=== PATIENT | female | born 1950 | race Caucasian/White ===

== ENCOUNTER → 2017-05-09 | Outpatient (CLI) | payer BC ==
[~2017-05-09] VITALS: Ht 170.2 cm; Wt 79.4 kg
[~2017-05-09] MED LIST: ACIPHEX20 MG PO; ADVAIR 250/501 DISK IH; ATACAND HCT1 TABLET PO; DEXILANT60 MG PO; EFFEXOR75 MG PO; LEVAQUIN500 MG PO; LIPITOR40 MG PO; MUCINEX DM ER1 EAC1 PO; NEXIUM40 MG PO; ROBITUSSIN AC,T10 ML PO; SEROQUEL100 MG PO; SEROQUEL50 MG PO; SUCRALFATE1 GM PO; VOLTAREN75 MG PO; ZANTAC300 MG PO
== END | disposition home or self-care (01) ==
LOC: AMB 07:56
DX: K31.7 Polyp of stomach and duodenum (principal); K29.70 Gastritis, unspecified, without bleeding; K44.9 Diaphragmatic hernia without obstruction or gangrene; K21.9 Gastro-esophageal reflux disease without esophagitis; I10 Essential (primary) hypertension; Z87.891 Personal history of nicotine dependence; Z79.82 Long term (current) use of aspirin
CPT/HCPCS: 88305; 88342 TC

== ENCOUNTER 2017-05-14 10:27 | Emergency (ER) | payer BC ==
[~2017-05-14] VITALS: Ht 170.2 cm; Wt 82.0 kg
[2017-05-14 11:20] LABS: HEMATOCRIT 32.1 % (36.0-46.0); MCH 26.2 PG (29.0-34.0); MCHC 31.5 G/DL (30.0-36.0); MCV 83.2 FL (83-99); MEAN PLAT.VOLUME 7.8 uM^3 (9.5-12.4); PLATELET COUNT 618 K/uL (156-360); RBC DIS.WIDTH-CV 12.7 % (11.8-14.6); RBC DIS.WIDTH-SD 38.7 % (39-53); RED BLOOD COUNT 3.86 M/uL (3.80-5.20); WHITE BLOOD COUNT 7.9 K/uL (4.1-10.2)
[2017-05-14 11:33] LABS: CHLORIDE 95 mEq/L (99-109); POTASSIUM 4.1 mEq/L (3.7-5.4); SODIUM 131 mEq/L (136-147)
[2017-05-14 11:36] LABS: GLUCOSE 99 mg/dL (70-99)
[2017-05-14 11:37] LABS: ANION GAP 9 MEQ/L (2-14)
[2017-05-14 11:38] LABS: TOTAL BILIRUBIN 0.3 mg/dL (0.0-1.0)
[2017-05-14 11:39] LABS: ALKALINE PHOSPHATASE 95 IU/L (3-129); GFR ESTIMATE (CALCULATED) > 59 mL/min/
[2017-05-14 11:40] LABS: UREA NITROGEN (BUN) 7 mg/dL (9-23)
[2017-05-14 11:43] LABS: LIPASE 22 U/L (1.0-51.0)
[2017-05-14 11:48] LABS: ADD MIUA? YES; BILIRUBIN NEGATIVE; BLOOD MODERATE; COLOR YELLOW ((YELLOW)); GLUCOSE (STRIP) NEGATIVE; KETONES 5; LEUKOCYTES TRACE; NITRITE NEGATIVE; PROTEIN (STRIP) NEGATIVE; UROBILINOGEN 0.2 MG/DL (0.2-1.0)
[2017-05-14 11:53] LABS: BACTERIA 3+ /HPF; EPITHELIAL CELLS 2+ /HPF; MUCUS TRACE /LPF
[2017-05-14 15:08] VITALS: BP 150/86
== END 2017-05-14 15:16 | disposition short-term general hospital (02) ==
LOC: EME 10:27
PROVIDERS: Nurse Practitioner Family
DX: C56.9 Malignant neoplasm of unspecified ovary (principal); C78.6 Secondary malignant neoplasm of retroperitoneum and peritoneum; J90 Pleural effusion, not elsewhere classified; R18.8 Other ascites; R19.7 Diarrhea, unspecified; I10 Essential (primary) hypertension; Z87.891 Personal history of nicotine dependence
CPT/HCPCS: 74177; 80053; 81003; 83690; 85027; 99281; 99284; J2405; J3010; J7030

== ENCOUNTER 2017-08-12 18:14 | Emergency (ER) | payer BC ==
[~2017-08-12] VITALS: Ht 170.2 cm; Wt 68.4 kg
[2017-08-12 18:58] LABS: NRBC (%) 0.3 /100 WBC (0-0)
[2017-08-12 19:04] LABS: CHLORIDE 92 mEq/L (99-109); POTASSIUM 2.9 mEq/L (3.7-5.4); SODIUM 132 mEq/L (136-147)
[2017-08-12 19:05] LABS: GLUCOSE 143 mg/dL (70-99)
[2017-08-12 19:07] LABS: ANION GAP 15 MEQ/L (2-14)
[2017-08-12 19:09] LABS: GFR ESTIMATE (CALCULATED) > 59 mL/min/
[2017-08-12 19:10] LABS: UREA NITROGEN (BUN) 25 mg/dL (9-23)
[2017-08-12 19:38] LABS: ABS NEUTROPHIL COUNT 2.9; ANISOCYTOSIS 2+; EOSINOPHIL ABS CT 0; HEMATOCRIT 30.6 % (36.0-46.0); HYPOCHROMASIA 1+; INSTRUMENT ABS NEUTROPHIL CT 3.1 K/uL; MACROCYTES 1+; MCH 28.1 PG (29.0-34.0); MCHC 33.7 G/DL (30.0-36.0); MCV 83.6 FL (83-99); MEAN PLAT.VOLUME 10.5 uM^3 (9.5-12.4); MICROCYTOSIS 1+; PLATELET COUNT 365 K/uL (156-360); RBC DIS.WIDTH-CV 21.7 % (11.8-14.6); RBC DIS.WIDTH-SD 65.5 % (39-53); RED BLOOD COUNT 3.66 M/uL (3.80-5.20); TARGET CELLS 2+; WHITE BLOOD COUNT 6.4 K/uL (4.1-10.2)
[2017-08-12 21:32] LABS: CHLORIDE 94 mEq/L (99-109); POTASSIUM 3.3 mEq/L (3.7-5.4); SODIUM 132 mEq/L (136-147)
[2017-08-12 21:34] LABS: GLUCOSE 98 mg/dL (70-99)
[2017-08-12 21:35] LABS: ANION GAP 11 MEQ/L (2-14)
[2017-08-12 21:37] LABS: GFR ESTIMATE (CALCULATED) > 59 mL/min/
[2017-08-12 21:38] LABS: UREA NITROGEN (BUN) 22 mg/dL (9-23)
[2017-08-12] MEDS ORDERED: K-DUR20 MEQ PO (21:54)
[2017-08-12] MEDS ORDERED: LOMOTIL TABLET1 EACH PO (21:54)
[2017-08-12 22:01] VITALS: BP 156/86
== END 2017-08-12 22:18 | disposition home or self-care (01) ==
LOC: EME 18:14
PROVIDERS: Emergency Medicine
DX: R19.7 Diarrhea, unspecified (principal); E87.6 Hypokalemia; J45.909 Unspecified asthma, uncomplicated; I10 Essential (primary) hypertension; K21.9 Gastro-esophageal reflux disease without esophagitis; F32.9 Major depressive disorder, single episode, unspecified; C56.9 Malignant neoplasm of unspecified ovary; Z87.891 Personal history of nicotine dependence; Z93.2 Ileostomy status
CPT/HCPCS: 80048; 80048 91; 85025; 99281; 99284; J2405; J3480; J7030

== ENCOUNTER 2017-08-13 12:10 | Emergency (ER) | payer BC ==
[~2017-08-13] VITALS: Ht 170.2 cm; Wt 68.2 kg
[~2017-08-13 12:10] MED LIST changes: +K-DUR20 MEQ PO; +LOMOTIL TABLET1 EACH PO
[2017-08-13 13:34] LABS: HEMATOCRIT 29.4 % (36.0-46.0); MCH 28.2 PG (29.0-34.0); MCHC 33.3 G/DL (30.0-36.0); MCV 84.5 FL (83-99); MEAN PLAT.VOLUME 10.5 uM^3 (9.5-12.4); NRBC (%) 0.4 /100 WBC (0-0); PLATELET COUNT 357 K/uL (156-360); RBC DIS.WIDTH-CV 21.7 % (11.8-14.6); RED BLOOD COUNT 3.48 M/uL (3.80-5.20)
[2017-08-13 13:44] LABS: CHLORIDE 97 mEq/L (99-109); POTASSIUM 3.1 mEq/L (3.7-5.4); SODIUM 132 mEq/L (136-147)
[2017-08-13 13:46] LABS: GLUCOSE 99 mg/dL (70-99)
[2017-08-13 13:48] LABS: ANION GAP 10 MEQ/L (2-14)
[2017-08-13 13:50] LABS: GFR ESTIMATE (CALCULATED) > 59 mL/min/
[2017-08-13 13:51] LABS: UREA NITROGEN (BUN) 21 mg/dL (9-23)
[2017-08-13 14:13] LABS: ABS NEUTROPHIL COUNT 5.6; ANISOCYTOSIS 1+; EOSINOPHIL ABS CT 0; HEMATOLOGY COMMENT 1 SMEAR COMPATIBLE; HYPOCHROMASIA 1+; INSTRUMENT ABS NEUTROPHIL CT 5.4 K/uL; MACROCYTES 1+; PLAT.SUFFICIENCY ADEQUATE
[2017-08-13 16:45] VITALS: BP 152/88
== END 2017-08-13 16:50 | disposition short-term general hospital (02) ==
LOC: EME 12:10
PROVIDERS: Emergency Medicine
DX: R11.0 Nausea (principal); R53.1 Weakness; E87.6 Hypokalemia; Z85.43 Personal history of malignant neoplasm of ovary; Z93.2 Ileostomy status; Z98.890 Other specified postprocedural states; Z86.14 Personal history of Methicillin resistant Staphylococcus aureus infection; I10 Essential (primary) hypertension; Z87.891 Personal history of nicotine dependence
CPT/HCPCS: 80048; 85025; 99281; 99285; J2405; J7030

== ENCOUNTER 2017-09-02 11:02 | Emergency (ER) | payer BC ==
[~2017-09-02] VITALS: Ht 170.2 cm; Wt 63.6 kg
[2017-09-02 12:40] LABS: INTER. NORMALIZED RATIO 0.9
[2017-09-02 12:42] LABS: HEMATOCRIT 35.1 % (36.0-46.0); MCH 29.5 PG (29.0-34.0); MCHC 33.6 G/DL (30.0-36.0); MCV 87.8 FL (83-99); RBC DIS.WIDTH-CV 21.5 % (11.8-14.6); WHITE BLOOD COUNT 17.4 K/uL (4.1-10.2)
[2017-09-02 12:43] LABS: PTT 21.6 SEC (25-37)
[2017-09-02 12:48] LABS: CHLORIDE 96 mEq/L (99-109); SODIUM 135 mEq/L (136-147)
[2017-09-02 12:51] LABS: GLUCOSE 109 mg/dL (70-99)
[2017-09-02 12:52] LABS: ANION GAP 17 MEQ/L (2-14)
[2017-09-02 12:54] LABS: ALKALINE PHOSPHATASE 136 IU/L (3-129); GFR ESTIMATE (CALCULATED) > 59 mL/min/
[2017-09-02 12:55] LABS: UREA NITROGEN (BUN) 23 mg/dL (9-23)
[2017-09-02 12:56] LABS: DIRECT BILIRUBIN 0.4 mg/dL (0.0-0.3)
[2017-09-02 12:58] LABS: LIPASE 8 U/L (1.0-51.0); TROP-I INTERPRETATION NEGATIVE; TROPONIN-I < 0.01 ng/mL (0.0-0.30)
[2017-09-02 13:28] LABS: ABS NEUTROPHIL COUNT 14.7; ANISOCYTOSIS 1+; EOSINOPHIL ABS CT 0; INSTRUMENT ABS NEUTROPHIL CT 11.9 K/uL; MACROCYTES 1+; MEAN PLAT.VOLUME 9.9 uM^3 (9.5-12.4); METAMYELOCYTES 0.9 %; MYELOCYTES 0.9 %; PLAT.SUFFICIENCY ADEQUATE; PLATELET COUNT 190 K/uL (156-360); SEG.NEUTROPHILS 84.3 % (46.0-76.0); SMUDGE CELLS 2.6
[2017-09-02 18:57] VITALS: BP 154/91
== END 2017-09-02 18:58 | disposition short-term general hospital (02) ==
LOC: EME 11:02
PROVIDERS: Emergency Medicine
DX: K94.13 Enterostomy malfunction (principal); K56.7 Ileus, unspecified; C56.9 Malignant neoplasm of unspecified ovary; Z79.899 Other long term (current) drug therapy; F32.9 Major depressive disorder, single episode, unspecified; K21.9 Gastro-esophageal reflux disease without esophagitis; I10 Essential (primary) hypertension; J45.909 Unspecified asthma, uncomplicated; Z87.891 Personal history of nicotine dependence
CPT/HCPCS: 71010; 74177; 80048; 80076; 81003; 83605; 83690; 84484; 85025; 85610; 85730; 99281; 99285; J1200; J2270; J2405; J2765; J7030; S0028

== ENCOUNTER 2017-10-16 05:55 | Emergency (ER) | payer OTHER, BC ==
[~2017-10-16] VITALS: Ht 170.2 cm; Wt 70.1 kg
[2017-10-16 06:36] LABS: HEMATOCRIT 35.4 % (36.0-46.0); MCH 32.8 PG (29.0-34.0); MCHC 33.9 G/DL (30.0-36.0); MCV 96.7 FL (83-99); MEAN PLAT.VOLUME 10.4 uM^3 (9.5-12.4); NRBC (%) 0.6 /100 WBC (0-0); RBC DIS.WIDTH-CV 18.8 % (11.8-14.6); RBC DIS.WIDTH-SD 66.8 % (39-53); WHITE BLOOD COUNT 26.7 K/uL (4.1-10.2)
[2017-10-16 06:40] LABS: CHLORIDE 96 mEq/L (99-109); POTASSIUM 3.7 mEq/L (3.7-5.4); SODIUM 133 mEq/L (136-147)
[2017-10-16 06:42] LABS: GLUCOSE 163 mg/dL (70-99)
[2017-10-16 06:44] LABS: ANION GAP 22 MEQ/L (2-14); TOTAL BILIRUBIN 0.5 mg/dL (0.0-1.0)
[2017-10-16 06:46] LABS: ALKALINE PHOSPHATASE 165 IU/L (3-129); GFR ESTIMATE (CALCULATED) 40 mL/min/
[2017-10-16 06:47] LABS: UREA NITROGEN (BUN) 20 mg/dL (9-23)
[2017-10-16 07:30] LABS: ABS NEUTROPHIL COUNT 17.6; ANISOCYTOSIS 2+; BAND NEUTROPHILS 25.7 % (0-8.0); EOSINOPHIL ABS CT 0.1; EOSINOPHILS 0.4 % (0-5.0); INSTRUMENT ABS NEUTROPHIL CT 17.9 K/uL; LYMPHOCYTES 5.7 % (15.0-45.0); MACROCYTES 2+; METAMYELOCYTES 7.8 %; MYELOCYTES 2.6 %; NUCLEATED RBC'S 0.9; OVALOCYTES 1+; PLAT.SUFFICIENCY INCREASED; PLATELET CLUMPS PRESENT - PLATELET COUNT APPEARS INCREASED; POLYCHROMASIA 1+; RED BLOOD COUNT 3.66 M/uL (3.80-5.20); SEG.NEUTROPHILS 40.4 % (46.0-76.0); SPHEROCYTES 1+; TARGET CELLS 1+; TOX.VACUOLIZATION 1+; TOXIC GRANULATION 2+
[2017-10-16 07:32] LABS: GIANT PLATELETS 1+
[2017-10-16 19:44] VITALS: BP 114/71
== END 2017-10-16 19:44 | disposition short-term general hospital (02) ==
LOC: EME → EDBD 05:55 → EME 19:44
PROVIDERS: Nurse Practitioner Family
DX: K56.609 Unspecified intestinal obstruction, unspecified as to partial versus complete obstruction (principal); C78.6 Secondary malignant neoplasm of retroperitoneum and peritoneum; Z85.43 Personal history of malignant neoplasm of ovary; Z93.2 Ileostomy status; R11.2 Nausea with vomiting, unspecified; R00.0 Tachycardia, unspecified; Z86.14 Personal history of Methicillin resistant Staphylococcus aureus infection; Z87.891 Personal history of nicotine dependence
CPT/HCPCS: 71010; 74020; 74177; 80053; 83630; 85025; 87177; 87493; 93005; J1170; J2270; J2405; J2765; J3010; J7030; J7050; S0028

== ENCOUNTER → 2017-10-31 | Outpatient (CLI) | payer OTHER, BC | END | disposition home or self-care (01) | LOC: RAD 10-17 09:00 | DX: Z93.2 Ileostomy status (principal) | CPT/HCPCS: 74270 ==